=== PATIENT | female | born 1950 | race Caucasian/White ===

== ENCOUNTER 2019-01-19 16:16 | Emergency (ER) | payer MEDICARE ==
--- NOTE | 2019-01-19 16:30 | UC ---
Respiratory Complaint HPI - HPI Summary HPI Summary: 68 y/o female presents to the urgent care accompany by daughter c/o productive cough, chest congestion, fatigue for the past 2 weeks. Pt reports PMHX of COPD , depression, and chronic back pain s/p surgeries and on pain management. Pt states she is a heavy everyday smoker. Pt states her PCP Dr Monroe changed her Clonipine for Buspirone PO in 11/23/2018. She didn't tolerated ell medication and now it was change to Mirtazapine 15mg PO on 01/17/2019. For the past 2 days she has been feeling w/ shakiness, weakness. Chest congestion is worse today and had some chills last night. Pt denies SOB, chest pain,abdominal pain, dizziness today, ZHOU, fever, abdominal pain, N/V/D. - History of Current Complaint Stated Complaint: UPPER RESPITORY,COUGH Time Seen by Provider: 01/19/19 16:24 Hx Obtained From: Patient, Family/[employer] - daughter Onset/Duration: Gradual Onset, Lasting Weeks Timing: Intermittent Episodes Severity Initially: Mild Severity Currently: Mild Pain Intensity: 0 Pain Scale Used: 0-10 Numeric Character: Cough: Productive, Sputum Description: - yellowish Aggravating Factors: Recumbent Position Alleviating Factors: OTC Meds Associated Signs And Symptoms: Positive: Chills, Wheezing - mild, URI, Nasal Congestion, Sinus Discomfort. Negative: Fever, Dizziness - Risk Factors Pulmonary Embolism Risk Factors: Negative Cardiac Risk Factors: Negative Pseudomonas Risk Factors: Negative Tuberculosis Risk Factors: Negative - Allergies/Home Medications Allergies/Adverse Reactions: Allergies Allergy/AdvReac Type Severity Reaction Status Date / Time cefprozil [From Cefzil] Allergy Airway Verified 01/19/19 16:44 Obstruction MS Cefprozil [From Cefzil] Allergy Anaphylatic Verified 11/04/14 13:19 Shock Home Medications: Home Medications Mirtazapine TAB* [Remeron TAB*] 15 mg PO BEDTIME 01/19/19 [History Confirmed ] PMH/Surg Hx/FS Hx/Imm Hx Previously Healthy: Yes Respiratory History: COPD Psychological History: Anxiety, Depression - Surgical History Surgical History: Yes Surgery Procedure, Year, and Place: 3 Back Surgeries. Cholecystectomy. Tubal Ligation - Family History Known Family History: Positive: Cardiac Disease, Hypertension Family History: bladder cancer - Social History Occupation: Retired Lives: With Family Alcohol Use: Rare Substance Use Type: None Smoking Status (MU): Heavy Every Day Tobacco Smoker Type: Cigarettes Amount Used/How Often: 1 PPD Have You Smoked in the Last Year: Yes Household Exposure Type: Cigarettes Review of Systems All Other Systems Reviewed And Are Negative: Yes Constitutional: Positive: Chills, Other - fatigue Skin: Positive: Negative Eyes: Positive: Negative ENT: Positive: Nasal Discharge - yellowish, Sinus Congestion, Sinus Pain/ Tenderness, Other - yellowish PND Respiratory: Positive: Cough - productive cough q/ yellowish phlegm, Other - mild wheezing Cardiovascular: Positive: Negative Gastrointestinal: Positive: Negative Genitourinary: Positive: Negative Motor: Positive: Negative Neurovascular: Positive: Negative Musculoskeletal: Positive: Negative Neurological: Positive: Weakness Psychological: Positive: Negative Is Patient Immunocompromised?: No Physical Exam - Summary Physical Exam Summary: Vital Signs Reviewed: Yes General: well developed, well nourished thin female sitting in the examining table w/o any apparent distress Eyes: Positive: Conjunctiva Clear - PERRLA, EOMI, fundi grossly normal ENT: Positive: Normal ENT inspection, Hearing grossly normal, Pharynx normal, Nasal congestion - edematous and erythematous nasal mucosa, Nasal drainage - yellowish drainage, TMs normal. Negative: Tonsillar swelling, Tonsillar exudate Neck: Positive: Supple, Nontender, No Lymphadenopathy Respiratory: no orthopnea or dyspnea. Able to speak in full sentences, no retractions or accessory muscle use, no tripod position, stridor, or head bobbing. Positive breath sounds bilaterally. diffuse scattered wheezing and rhonchi on b/L lungs, no crackles or rales. Cardiovascular: Positive: RRR, No Murmur, Pulses Normal, Brisk Capillary Refill Abdomen Description: Positive: Nontender, No Organomegaly, Soft. Negative: CVA Tenderness (R), CVA Tenderness (L) Bowel Sounds: Positive: Present Musculoskeletal Exam: Normal Musculoskeletal: Positive: Strength Intact, ROM Intact, No Edema Neurological Exam: Normal Psychological Exam: Normal Skin Exam: Normal Triage Information Reviewed: Yes Respiratory Course/Dx - Course Course Of Treatment: 68 y/o female presents to the urgent care accompany by daughter c/o productive cough, chest congestion, fatigue for the past 2 weeks. Pt reports PMHX of COPD , depression, and chronic back pain s/p surgeries and on pain management. Pt states she is a heavy everyday smoker. Pt states her PCP Dr Monroe changed her Clonipine for Buspirone PO in 11/23/2018. She didn't tolerated ell medication and now it was change to Mirtazapine 15mg PO on 01/17/2019. For the past 2 days she has been feeling w/ shakiness, weakness. Chest congestion is worse today and had some chills last night. Pt denies SOB, chest pain,abdominal pain, dizziness today, ZHOU, fever, abdominal pain, N/V/D. Hx obtained. Pt is hemodynamically stable, A&OX3, O2SAt:98%Pt w/ B/L lungs scattered wheezing and rhonchi on examination. Pt w/ PMHX of COPD and heavy smoker in the past. Pt probably w/ a COPD exacerbation. Chest X-ray ordered: IMPRESSION: Stigmata of obstructive lung disease. No acute pulmonary or cardiac process evident as per radiologist. Pt w/ COPD exacerbation clinically. Pt given a Duoneb treatment. Pt tolerated well medications and her lungs improved. Pt states feeling better, breathing better. Pt will be tx w/ Rx Doxycycline PO , advised to use the neb Tx at home and inhalers. Strongly advised to f/u with her PCP this coming Monday for further management in her COPD adn her Depression since Mirtazarpine is given her side effect of shakiness and fatigue. Also explained if symptoms worsen to go immediately to the ER for further management. Daughter and Pt understood and agreed with D/C w/ plan of care. Pt left clinic hemodynamically, stable A&OX3. - Differential Dx/Diagnosis Differential Diagnosis/HQI/PQRI: Bronchitis, Exacerbation Of COPD, Influenza, Lower Resp Infection, Sinusitis, Tuberculosis, Other Provider Diagnosis: COPD with acute exacerbation, Wheezing Discharge - Sign-Out/Discharge Documenting (check all that apply): Patient Departure - D/C home All imaging exams completed and their final reports reviewed: Yes - Discharge Plan Condition: Stable Disposition: HOME Prescriptions: DOXYcycline CAP(*) [DOXYcycline 100MG CAP(*)] 100 mg PO BID #20 cap Patient Education Materials: COPD (Chronic Obstructive Pulmonary Disease) (ED) Referrals: Niya Monroe MD [Primary Care Provider] - 2 Days Additional Instructions: 1-Please take full course of antibiotic to avoid resistance. Take yogurt w/ probiotics or Cuturelle to protect your GI system 2-Do the Albuterol Neb Tx at home to alleviate cough and wheezing. Increase fluid intake, rest and eat well. 3- If symptoms do not improve or worsen or your develop SOB with fever and severe wheezing, dizziness, chest pain please go immediately to the ER further evaluation and treatment. 4- Please f/u w/ your PCP this coming Monday for further management on your COPD adn your Depression. Mirtazarpine may be causing some side effecte of shakiness and fatigue - Billing Disposition and Condition Condition: STABLE Disposition: Home
--- OUTSIDE RECORDS SUMMARY | 2019-01-19 16:31 | XMS REPORT | Continuity of Care Document ---
:1950 External Reference #:[id number] Author Name Niya Monroe MD Address [address] [place] [address] Care Team Providers Name Role Phone Niya Monroe MD Care Team Information Cytotechnologist/Histotechnologist Unavailable Niya Monroe MD Primary Care Physician Unavailable Payers Date Identification Numbers Payment Provider Subscriber Policy Number: [id number] [facility] Medicare [employer] Number: [id number] [address] [address] PayID: [id number] [place] [address] Problems Active Problems Provider Date Chronic obstructive lung disease Puja Noe M.D. Onset: 03/04/2015 Degenerative joint disease involving Ariana Wells [facility] Onset: 2012 multiple joints Low back pain Puja Noe M.D. Onset: 10/16/2012 Neoplasm of uncertain behavior of ovary Niya Monroe MD Onset: 08/24/2017 Substance abuse counseling Niya Monroe MD Onset: 08/24/2017 Thoracic and lumbosacral neuritis Niya Monroe MD Onset: 12/15/2016 Intra-abdominal and pelvic swelling, mass Niya Monroe MD Onset: 2015 and lump Tobacco user Niya Monroe MD Onset: 02/29/2016 Posttraumatic stress disorder Niya Monreo MD Onset: 02/29/2016 Generalized anxiety disorder Niya Monroe MD Onset: 02/29/2016 Moderate recurrent major depression Niya Monroe MD Onset: 02/29/2016 Resolved Problems Weight decreased Puja Noe M.D. Onset: 10/16/2012 Resolved: 03/04/2015 Family History Date Family Member(s) Observation Comments Father due to Bladder Cancer () Onset: (age 61 Years) Father Cancer Father due to Throat Cancer () Mother due to Uterine Cancer () Onset: (age 42 Years) Mother Cancer Mother due to Breast Cancer () First Sister neck surgery Social History Type Date Description Comments Sex Unknown Marital Status Lives With Alone 2 DOGS AND 4 CATS Pets 3 cats Occupation Disabled FROM BACK ADL's/IADL's Independent with all ADL's ADL's/IADL's Independent with all IADL's Hobbies Reading Hobbies [employer] Tobacco Use Start: Unknown current cigarette 2 PPD X 10 YRS 1 smoker PPD X 40 YRS ETOH Use Denies alcohol use Recreational Drug Use Never Used Drugs Tobacco Use Start: Unknown Heavy tobacco smoker (more than 10 cigarettes/day) Smoking Status Reviewed: 12/26/18 Heavy tobacco smoker (more than 10 cigarettes/day) Exercise Type/Frequency Exercises rarely Allergies, Adverse Reactions, Alerts Active Allergies Reaction Severity Comments Date Cefzil 03/04/2015 Medications Active Medications SIG Qnty Indications Ordering Date Provider Buspirone HCL take 1 tablet by 120tabs F41.1 Niya Monroe, 11/23/2018 5mg mouth 4 times a MD Tablets day according to schedule outlined in office Fluoxetine HCL 1 by mouth every 90tabs Niya Monroe, 09/19/2018 60mg day MD Tablets Advair Diskus 1 inhalation 60units J44.9 Niya Monroe, 05/16/2017 1X/Day MD 250-50mcg/Dose Aerosol Albuterol Sulfate 1 vial in 75ml J44.9 Niya Monroe, 05/16/2017 nebulizer every 4 MD (2.5mg/3ML) 0.083% hours as needed Nebulizer Oxycodone/Acetaminop 1-2 q bid prn pain Unknown hen 5-325mg Tablets Clonazepam 1 tab by mouth as 36tabs Niya Monroe, 0.5mg planned for MD Tablets weaning. Reference #: [id number] Morphine Sulfate ER Take One Capsule Unknown By Mouth Every 12 50mg Caps ER 24HR Hours History Medications Chantix Starting use as directed on 53tabs Niya Monroe, 09/26/2018 - Month Sherman package 11/23/2018 0.5mg X 11 & 1 mg X 42 Tablets Prednisone 2 tab by mouth 10tabs J44.1 Oscar Jones MD 06/26/2018 - 20mg every day as 11/23/2018 Tablets directed Azithromycin 2 tabs (500mg) on 6tabs J44.1 Oscar Jones MD 06/26/2018 - 250mg first day, then 1 11/23/2018 Tablets tab by mouth (250mg) for next 4 days Fluoxetine HCL 1 cap 1x/day along 90tabs Niya Monroe, 01/24/2018 - (PMDD) with 40 mg dose 09/19/2018 20mg Tablets Chantix Starting use as directed on 53tabs Niya Monroe, 01/24/2018 - Month [place] package 06/26/2018 0.5mg X 11 & 1 mg X 42 Tablets Chantix 1 by mouth twice a 180tabs Niya Monroe, 01/24/2018 - 1mg Tablets day with meal 06/26/2018 Ventolin HFA take 2 puffs every 8gm Niya Monroe, 01/24/2018 - 4 hours as needed 11/23/2018 108(90Base) mcg/Act for Aerosol wheezing,shortness of breath or persistent cough. Chantix 1 tab by mouth 60tabs F17.210 Martha Barrera, 05/16/2017 - 1mg Tablets twice a day PNP-CLEO RUSSO, 05/16/2017 Ibclc Perforomist take 1 vial twice 240ml J44.9 Asad Conley, 03/30/2016 - daily. 12/15/2016 20mcg/2ML Nebulizer Pulmicort 1 vial in neb. 60ml J44.9 Oscar Jones MD 03/24/2016 - 2x/day 11/23/2018 0.25mg/2ML Suspension Proair HFA 1-2 inhalations 8.500gm J44.9 Niya Monroe, 03/24/2016 - every 4 hours as Unknown 108(90Base) mcg/Act needed for sob, Aerosol wheezing or persistent cough Advair Diskus use 1 breath twice 3units 496 Barbara, 03/04/2015 - a day Nikki Luo 02/29/2016 250-50mcg/Dose Aerosol Oxybutynin Chloride 1 by mouth every 90tabs 788.31 Barbara, 03/04/2015 - ER day Nikki Luo 03/24/2016 10mg Tablets ER 24HR Vesicare 1 po qd prn Barbara, 09/18/2013 - 5mg MD Puja 03/04/2015 Tablets Meloxicam 1 po qd with food 30tabs Barbara, 04/09/2013 - 15mg for back pain MD Puja 03/04/2015 Tablets Lola 1 PO bid Unknown - 50mg Caps ER 08/24/2017 24HR Fluoxetine HCL 1 by mouth once a 90caps Niya Monroe, - 40mg day along with 20 09/19/2018 Capsules mg dose Pristiq 1 po qd, pain Dr 90tabs Unknown - 50mg is tapering 03/04/2015 Tablets ER 24HR 06/17/13 Flovent HFA 1 puffs twice a Unknown - day as needed Unknown 110mcg/Act Aerosol Albuterol Sulfate nebulized every 6 Unknown - hours as needed 05/16/2017 (2.5mg/3ML) 0.083% Nebulizer Gabapentin Take One Capsule Unknown - 300mg By Mouth Three 11/23/2018 Capsules Times A Day Bupropian HCL SR 1 PO qd For Unknown - Smoking Cessation 01/24/2018 100mg Immunizations CPT Code Status Date Vaccine Lot # [id number] Given 08/24/2017 Tdap injection [id number] 39814 Given 05/16/2017 Pneumovax Injection [id number] 93550 Given 03/04/2015 Pneumococcal Conjugate Vaccine 13 Valent For [id number] Intramuscular Use 72805 Given 06/17/2013 flu vaccination [id number] Refused 05/16/2017 Influenza Vaccine, Inactivated, Subunit, Adjuvanted , For Intrmusc Vital Signs Date Vital Result Comment 12/26/2018 6:25pm BP Systolic Sitting Left Arm 108 mmHg BP Diastolic Sitting Left Arm 66 mmHg Heart Rate 86 /min Respiratory Rate 18 /min Height 63 inches 5'3" Weight 101.00 lb BMI (Body Mass Index) 17.9 kg/m2 BSA (Body Surface Area) 1.45 m2 [place] body weight in kilograms 52 kg 11/23/2018 4:03pm BP Systolic 124 mmHg BP Diastolic 74 mmHg Heart Rate 88 /min Respiratory Rate 18 /min Weight 100.00 lb O2 % BldC Oximetry 93 % Ra 06/26/2018 10:58am BP Systolic 116 mmHg BP Diastolic 76 mmHg Body Temperature 98.3 F Heart Rate 95 /min Respiratory Rate 20 /min Weight 98.00 lb O2 % BldC Oximetry 96 % 01/24/2018 2:49pm BP Systolic 138 mmHg BP Diastolic 86 mmHg BP Systolic Sitting Left Arm 138 mmHg BP Diastolic Sitting Left Arm 87 mmHg Body Temperature 98.4 F Heart Rate 107 /min Respiratory Rate 20 /min Weight 102.00 lb O2 % BldC Oximetry 96 % O2 Saturation Level with Exercise 92 % 08/24/2017 1:41pm BP Systolic Sitting Left Arm 142 mmHg BP Diastolic Sitting Left Arm 72 mmHg Body Temperature 98.5 F Heart Rate 102 /min Height 63 inches 5'3" Weight 112.00 lb BMI (Body Mass Index) 19.8 kg/m2 BSA (Body Surface Area) 1.51 m2 [place] body weight in kilograms 52 kg O2 % BldC Oximetry 92 % 05/16/2017 2:34pm BP Systolic Sitting Left Arm 122 mmHg BP Diastolic Sitting Left Arm 70 mmHg Body Temperature 96.8 F Heart Rate 60 /min Respiratory Rate 30 /min Height 64 inches 5'4" Weight 104.00 lb BMI (Body Mass Index) 17.8 kg/m2 BSA (Body Surface Area) 1.48 m2 [place] body weight in kilograms 54 kg O2 % BldC Oximetry 98 % 12/15/2016 3:55pm BP Systolic Sitting Right Arm 126 mmHg BP Diastolic Sitting Right Arm 64 mmHg Height 64 inches 5'4" Weight 103.00 lb BMI (Body Mass Index) 17.7 kg/m2 BSA (Body Surface Area) 1.48 m2 [place] body weight in kilograms 54 kg 03/30/2016 3:03pm BP Systolic Sitting Right Arm 130 mmHg BP Diastolic Sitting Right Arm 79 mmHg Heart Rate 63 /min Height 63 inches 5'3" Weight 112.00 lb BMI (Body Mass Index) 19.8 kg/m2 BSA (Body Surface Area) 1.51 m2 O2 % BldC Oximetry 95 % 03/24/2016 2:40pm BP Systolic Sitting Left Arm 113 mmHg BP Diastolic Sitting Left Arm 63 mmHg Body Temperature 97.8 F Heart Rate 66 /min Respiratory Rate 22 /min Height 63 inches 5'3" Weight 112.12 lb BMI (Body Mass Index) 19.9 kg/m2 BSA (Body Surface Area) 1.51 m2 02/29/2016 5:12pm BP Systolic Sitting Left Arm 114 mmHg BP Diastolic Sitting Left Arm 68 mmHg Height 63 inches 5'3" Weight 113.00 lb BMI (Body Mass Index) 20.0 kg/m2 BSA (Body Surface Area) 1.52 m2 [place] body weight in kilograms 52 kg 03/04/2015 3:01pm BP Systolic Sitting Left Arm 104 mmHg BP Diastolic Sitting Left Arm 60 mmHg Heart Rate 90 /min Respiratory Rate 22 /min Height 63 inches 5'3" Weight 109.00 lb BMI (Body Mass Index) 19.3 kg/m2 BSA (Body Surface Area) 1.49 m2 O2 % BldC Oximetry 93 % 09/18/2013 2:20pm BP Systolic 104 mmHg BP Diastolic 62 mmHg Height 63 inches 5'3" Weight 112.00 lb 06/17/2013 1:01pm BP Systolic 118 mmHg BP Diastolic 62 mmHg Height 63 inches 5'3" Weight 105.00 lb 06/17/2013 1:08pm O2 % BldC Oximetry 94 % 04/09/2013 2:50pm BP Systolic 122 mmHg BP Diastolic 72 mmHg Weight 109.00 lb 01/16/2013 10:04am Height 63 inches 5'3" Weight 112.00 lb 01/16/2013 10:06am BP Systolic 110 mmHg BP Diastolic 64 mmHg Heart Rate 82 /min 10/16/2012 3:47pm BP Systolic 102 mmHg BP Diastolic 54 mmHg 10/16/2012 3:47pm BP Systolic 102 mmHg BP Diastolic 54 mmHg Heart Rate 84 /min Respiratory Rate 19 /min Height 63 inches 5'3" Weight 114.00 lb Results Test Date Facility Test Result H/L Range Note CBS 01/24/2018 [facility] White Blood 13.5 K/uL High 3.1-10.7 1 W/Automated [address] Count Diff [place], [place] [id number] [phone] Red Blood Count 4.50 M/uL N 3.90-5.40 Hemoglobin 14.0 gm/dL N 11.6-15.8 Hematocrit 42.8 % N 36.0-46.1 Mean Cell Volume 95.1 fl N 80.9-99.0 Mean Corpuscular HGB 31.1 pg N 25.9-32.7 Mean Corpuscular HGB Conc 32.7 g/dL N 30.8-34.3 Platelet Count 409 K/uL High 155-360 Red Cell Distri Width SD 47.2 fl High 3-47 Red Cell Distri Width %CV 13.9 % N 11.7-14.4 Mean Platelet Volume 10.5 fL N 8.9-12.4 Neut% 68.1 % N 40.4-72.8 Lymph % 24.0 % N 20.0-42.0 [place] % 7.2 % N 4.3-13.2 Eo% 0.5 % N 0.0-6.6 Bas% 0.2 % N 0.0-1.1 Neut# 9.16 K/uL High 1.8-7.0 Lymph # 3.23 K/uL N 1.0-4.0 [place] # 0.97 K/uL High 0.3-0.9 Eos # 0.07 K/uL N 0.0-0.5 Baso # 0.03 K/uL N 0.0-0.1 LDL Cholesterol 01/24/2018 [facility] Cholesterol 207 mg/dL High <200 2 Profile [address] [place], [place] [id number] [phone] Triglycerides 168 mg/dL High <150 3 HDL Cholesterol 70 mg/dL >40 4 LDL-Cholesterol 103 mg/dL < 100 5 Comprehensive Metabolic 01/24/2018 [facility] Glucose 83 mg/dL N 74-106 Panel [address] [place] [address] [phone] BUN 15 mg/dL N 7-18 Creatinine 0.6 mg/dL N 0.6-1.3 Glom Filtration Rate, Estimate >60 mL/min >60 If >60 mL/min >60 6 BUN/Creat 25.0 ratio Sodium 135 mmol/L Low 136-145 Potassium 4.0 mmol/L N 3.5-5.1 Chloride 97 mmol/L Low 98-107 Carbon Dioxide 26 mmol/L N 21-32 Anion Gap 12 mEq/L N 8-16 Calcium 9.0 mg/dL N 8.5-10.1 Total Protein 7.5 g/dL N 6.4-8.2 Albumin 3.9 g/dL N 3.4-5.0 Globulin 3.6 g/dL N 1.9-4.3 Alb/Glob 1.1 ratio Bilirubin,Total 0.3 mg/dL N 0.2-1.0 Sgot/Ast 13 U/L Low 15-37 7 SGPT/Alt 20 U/L N 12-78 Alkaline Phosphatase 93 U/L N 45-117 HCV Jeanette Qual 01/24/2018 [facility] HCV Rna Jeanette QL Negative Negative 8 Reflex Gloria [address] [place] [address] [phone] Slide Review 01/24/2018 [facility] Slide Review DIFF ORDERED [address] [place] [address] [phone] Differential-W 01/24/2018 [facility] Total Cells 100 #CELLS BC Confirm [address] [place] [place] [address] [phone] Band% 2 % N 0-8 Neutrophils% 74 % High 33-73 Lymph% 18 % Low 20-42 Atypical Lymph% 1 % N 0-7 Monocyte% 5 % N 0-10 Platelet Estimate SLIGHT INCREASE Anisocytosis 0-1+ Laboratory test finding 04/12/2016 N2N/CCD Import Anion Gap 4 Low 8-16 BUN/Creatinine Ratio 20.0 Blood Urea Nitrogen 8 7-18 Calcium Level 8.3 Low 8.5-10.1 Carbon Dioxide Level 29 21-32 Chloride Level 103 98-107 Creatinine 0.4 Low 0.6-1.3 Glucose Screen 121 High 74-106 Hematocrit 37.3 36.0-46.1 Hemoglobin 12.2 11.6-15.8 Mean Corpuscular Hemoglobin 30.7 25.9-32.7 Mean Corpuscular Hemoglobin Concent 32.7 30.8-34.3 Mean Corpuscular Volume 94.0 80.9-99.0 Mean Platelet Volume 10.4 8.9-12.4 Platelet Count 303 155-360 Potassium Level 3.6 3.5-5.1 RDW Coefficient of Variation 13.0 11.7-14.4 Red Blood Count 3.97 3.90-5.40 Sodium Level 136 136-145 White Blood Count 10.9 High 3.1-10.7 Laboratory test finding 04/11/2016 [facility] Cea 3.4 ng/mL N 9, 10 [address] [place] [address] [phone] Cancer Antigen (CA) 125 17.1 U/mL N 0.0-38.1 11 Carbohydrate Antigen 19-9 64.0 U/mL High 0-35 12 Laboratory test 04/11/2016 N2N/CCD Import Alanine Aminotransferase 24 12 -78 finding (Alt/SGPT) Albumin 3.5 3.4-5.0 Albumin/Globulin Ratio 0.9 Alkaline Phosphatase 117 45-117 Aspartate Amino Transf (Ast/Sgot) 17 15-37 Basophils # (Auto) 0.04 0.0-0.1 Basophils (%) (Auto) 0.3 0.0-1.1 Eosinophils # (Auto) 0.11 0.0-0.5 Eosinophils (%) (Auto) 0.8 0.0-6.6 Globulin 3.7 1.9-4.3 Lipase 70 Low 73-393 Lymphocytes # (Auto) 1.23 Low 1.8-7.0 Lymphocytes (%) (Auto) 8.8 Low 17.0-46.1 Manual Slide Review (Hematology) . Monocytes # (Auto) 0.69 0.3-0.9 Monocytes (%) (Auto) 4.9 4.3-13.2 Neutrophils # (Auto) 11.93 High 1.8-7.0 Neutrophils (%) (Auto) 85.2 High 40.4-72.8 Red Cell Distribution Width 43.4 3-47 Total Bilirubin 0.3 0.2-1.0 Total Protein 7.2 6.4-8.2 Laboratory test 04/11/2016 N2N/CCD Import Urine Bacteria Very Few None Seen finding Urine Bilirubin Negative Negative Urine Blood Small High Negative Urine Clarity Clear Clear Urine Color Yellow Yellow Urine Epithelial Cells Moderate None Seen Urine Glucose (Ua) Negative Negative Urine Ketones Trace High Negative Urine Leukocyte Esterase Negative Negative Urine Nitrite Negative Negative Urine Protein Negative Negative Urine Specific [place] 1.020 1.010-1.030 Urine Urobilinogen 0.2 0.2-1.0 Urine WBC None Seen 0-7 Urine pH 6.0 Low 6.5-7.5 CBC/Manual 03/04/2015 [facility] White Blood 9.6 K/uL 3.1-10.[address] [place] [address] [phone] Red Blood Count 4.33 M/uL 3.90-5.40 Hemoglobin 14.0 gm/dL 11.6-15.8 Hematocrit 41.4 % 36.0-46.1 Mean Cell Volume 95.6 fl 80.9-99.0 Mean Corpuscular HGB 32.3 pg 25.9-32.7 Mean Corpuscular HGB Conc 33.8 g/dL 30.8-34.3 Platelet Count 300 K/uL 155-360 13 Red Cell Distri Width %CV 12.9 % 11.7-14.4 Mean Platelet Volume 10.5 fL 8.9-12.4 Total Cells Counted 100 #CELLS Neutrophils% 71 % 33-73 Lymph% 21 % 17-56 Platelet Estimate NORMAL Band% 1 % 0-8 Monocyte% 5 % 0-10 Eosinophil% 1 % 0-5 Basophil% 1 % 0-2 RBC Morphology NORMAL Basic Metabolic Panel 03/04/2015 [facility] Glucose 88 mg/dL 74-106 [address] [place], [place] [id number] [phone] BUN 10 mg/dL 7-18 Creatinine 0.7 mg/dL 0.6-1.3 Glom Filtration Rate, Estimate >60 mL/min >60 If >60 mL/min >60 14 BUN/Creat 14.2 ratio Sodium 137 mmol/L 136-145 Potassium 4.0 mmol/L 3.5-5.1 Chloride 103 mmol/L 98-107 Carbon Dioxide 28 mmol/L 21-32 Anion Gap 6 mEq/L Low 8-16 Calcium 9.1 mg/dL 8.5-10.1 Comp Metabolic Panel 06/17/2013 N2N/CCD Import Albumin 4.2 g/dL 3.2-5.2 Albumin/Globulin Ratio 2.1 1-3 Alkaline Phosphatase 61 U/L 30-110 Alt 16 U/L 14-54 Anion Gap 6.0 mmol/L 2-11 Ast 18 U/L 12-42 BUN/Creatinine Ratio 16.7 8-20 Blood Urea Nitrogen 10 mg/dL 6-24 Calcium 9.6 mg/dL 8.1-9.9 Chloride 95 mmol/L Low 101-111 Co2 Carbon Dioxide 28.0 mmol/L 22-32 Creatinine 0.60 mg/dL 0.50-1.40 Egfr 129.9 >60 15 Egfr Non- 101.0 >60 Globulin 2.0 g/dL 2-4 Glucose 168 mg/dL High 70-100 Potassium 4.3 mmol/L 3.5-5.0 Sodium 129 mmol/L Low 133-145 Total Bilirubin 0.5 mg/dL 0.4-1.5 Total Protein 6.2 g/dL 6.2-8.1 CBC Auto Diff 06/17/2013 N2N/CCD Import Abs Basophils 0.1 10^3/uL 0-0.2 Abs Eosinophils 0.1 10^3/uL 0-0.6 Abs Lymphocytes 3.0 10^3/uL 1.0-4.8 Abs Monocytes 0.3 10^3/uL 0-0.8 Abs Neutrophils 5.7 10^3/uL 1.5-7.7 Abs Nucleated RBC 0 10^3/uL Basophil % 0.6 % 0-2 Eosinophil % 1.3 % 0-6 Granulocyte % 62.7 % 38-83 Hematocrit 36 % 35-47 Hemoglobin 11.5 g/dL Low 12.0-16.0 Lymphocyte % 32.4 % 25-47 Mean Corpuscular HGB Conc 32 g/dL 31-36 Mean Corpuscular Hemoglobin 29 pg 27-31 Mean Corpuscular Volume 93 fL 80-97 Mean Platelet Volume 9 um3 7.4-10.4 Monocyte % 3.0 % 1-9 Nucleated Red Blood Cells % 0 Platelet Count 298 10^3/uL 150-450 Red Blood Count 3.91 10^6/uL Low 4.0-5.4 Red Cell Distribution Width 14 % 10.5-15 White Blood Count 9.1 10^3/uL 4.8-10.8 Laboratory test 06/17/2013 N2N/CCD Import TSH (Thyroid 0.69 miu/mL 0.34- 5.60 finding Stimulating Horm) CBC Auto Diff 04/09/2013 N2N/CCD Import Abs Basophils 0.1 10^3/uL 0-0.2 Abs Eosinophils 0.2 10^3/uL 0-0.6 Abs Lymphocytes 3.4 10^3/uL 1.0-4.8 Abs Monocytes 0.5 10^3/uL 0-0.8 Abs Neutrophils 3.7 10^3/uL 1.5-7.7 Abs Nucleated RBC 0 10^3/uL Basophil % 0.8 % 0-2 Eosinophil % 2.0 % 0-6 Granulocyte % 47.4 % 38-83 Hematocrit 36 % 35-47 Hemoglobin 12.1 g/dL 12.0-16.0 Lymphocyte % 43.2 % 25-47 Mean Corpuscular HGB Conc 34 g/dL 31-36 Mean Corpuscular Hemoglobin 32 pg High 27-31 Mean Corpuscular Volume 95 fL 80-97 Mean Platelet Volume 9 um3 7.4-10.4 Monocyte % 6.6 % 1-9 Nucleated Red Blood Cells % 0 Platelet Count 276 10^3/uL 150-450 Red Blood Count 3.77 10^6/uL Low 4.0-5.4 Red Cell Distribution Width 13 % 10.5-15 White Blood Count 7.9 10^3/uL 4.8-10.8 Laboratory test 04/09/2013 N2N/LUMO [employer] Import Vitamin D 34 pg/mL 18-78 16 finding 1,25-Dihydroxy Stool Occult Blood 10/30/2012 N2N/CCD Import Occult Blood #1 Stool Negative 3 Spec MCR Occult Blood #2 Stool Negative Occult Blood #3 Stool Negative Laboratory test 10/16/2012 N2N/CCD Import TSH (Thyroid 0.58 miu/mL 0.34- 5.60 finding Stimulating Horm) Basic Metabolic 10/16/2012 N2N/CCD Import Anion Gap 7.0 mmol/L 2-11 Panel BUN/Creatinine Ratio 10.0 8-20 Blood Urea Nitrogen 6 mg/dL 6-24 Calcium 9.6 mg/dL 8.1-9.9 Chloride 103 mmol/L 101-111 Co2 Carbon Dioxide 30.0 mmol/L 22-32 Creatinine 0.60 mg/dL 0.50-1.40 Egfr 130.3 >60 17 Egfr Non- 101.3 >60 Glucose 106 mg/dL High 70-100 Potassium 4.4 mmol/L 3.5-5.0 Sodium 140 mmol/L 133-145 CBC With Manual Diff 10/16/2012 N2N/CCD Import Abs Basophils 0.1 10^3/uL 0-0.2 Abs Eosinophils 0.2 10^3/uL 0-0.6 Abs Lymphocytes 2.6 10^3/uL 1.0-4.8 Abs Monocytes 0.5 10^3/uL 0-0.8 Abs Neutrophils 4.4 10^3/uL 1.5-7.7 Abs Nucleated RBC 0 10^3/uL Basophil % 1 % 0-2 Eosinophils % 2 % 0-6 Hematocrit 38 % 35-47 Hemoglobin 12.9 g/dL 12.0-16.0 Lymphocytes % 33 % 25-47 Mean Corpuscular HGB Conc 34 g/dL 31-36 Mean Corpuscular Hemoglobin 32 pg High 27-31 Mean Corpuscular Volume 94 fL 80-97 Mean Platelet Volume 9 um3 7.4-10.4 Monocytes % 7 % 0-13 Neutrophil % 56 % 38-83 Platelet Count 247 10^3/uL 150-450 RBC Morphology Normal Normal Reactive Lymph % 1 % 0-6 Red Blood Count 4.02 10^6/uL 4.0-5.4 Red Cell Distribution Width 13 % 10.5-15 White Blood Count 7.7 10^3/uL 4.8-10.8 Liver Function Panel 10/16/2012 N2N/CCD Import Albumin 3.9 g/dL 3.2-5.2 Albumin/Globulin Ratio 1.5 1-3 Alkaline Phosphatase 83 U/L 30-110 Alt 16 U/L 14-54 Ast 17 U/L 12-42 Direct Bilirubin < 0.1 mg/dL Low 0.1-0.5 Globulin 2.6 g/dL 2-4 Indirect Bilirubin (See Note) mg/dL 0.3-1.0 18 Total Bilirubin 0.4 mg/dL 0.4-1.5 Total Protein 6.5 g/dL 6.2-8.1 Laboratory test finding 10/16/2012 N2N/CCD Import Cytology Pap See Note 19 1 Z13.0,Z13.1,Z11.59,Z13.220 2 Reference Guidelines*: Desirable: ........... < 200 mg/dL Borderline High: ..... 200-239 mg/dL High: ................ >=240 mg/dL * The National Cholesterol Education Program (NCEP) 3 Reference Guidelines*: Normal: ............. < 150 mg/dL Borderline High: .... 150-199 mg/dL High: ............... 200-499 mg/dL Very High: .......... > 500 mg/dL * Source: National Cholesterol Education Program (NCEP) 4 Reference Guidelines*: Low HDL: ..... < 40 mg/dL Normal: ..... 40-60 mg/dL Desirable: ... > 60 mg/dL *The National Cholesterol Education Program(NCEP) 5 Reference Guidelines*: Optimal:........... <100 mg/dL Near Optimal....... 100-129 mg/dL Borderline High.... 130-159 mg/dL High............... 160-189 mg/dL Very High.......... >=190 mg/dL * Source: National Cholesterol Education Program (NCEP) 6 Note: Persistent reduction for 3 months or more in an eGFR <60 mL/min/1.73 m2 defines CKD. Patients with eGFR values >/=60 mL/min/1.73 m2 may also have CKD if evidence of persistent proteinuria is present. The original MDRD equation for estimated GFR is not valid for patients less than 18 years of age. Additional information may be found at www.kdoqi.org. 7 Values below the stated reference ranges of AST and ALT can be seen in normal populations. Clinical correlation is suggested. 8 Negative: HCV RNA Not Detected Performed at: [address] [id number] Wood Scaler: Jose G López MD, Phone: [phone] LOWER ABD PAIN 10 Non-smokers ..... 0.0-3.0 ng/mL Smokers ......... 0.0-5.0 ng/mL THIS ASSAY IS NOT INTENDED A CANCER SCREENING TEST The concentration of CEA in a given specimen, determined with assays from different manufacturers, can vary due to differences in assay methods and reagent specificity. Values obtained from different assay methods cannot be used interchangeably. Method: Siemens ScoreStreak [place] Chemiluminescent Immunoassay 11 [employer] ECLIA methodology Values obtained with different assay methods or kits cannot be used interchangeably. Results cannot be interpreted as absolute evidence of the presence or absence of malignant disease. 12 [employer] ECLIA methodology Values obtained with different assay methods or kits cannot be used interchangeably. Results cannot be interpreted as absolute evidence of the presence or absence of malignant disease. Performed at: RN - [facility] [address] [id number] Wood Scaler: Do Kirk MD, Phone: [phone] FEW LARGE PLATELETS SEEN ON SMEAR 14 Note: Persistent reduction for 3 months or more in an eGFR <60 mL/min/1.73 m2 defines CKD. Patients with eGFR values >/=60 mL/min/1.73 m2 may also have CKD if evidence of persistent proteinuria is present. The original MDRD equation for estimated GFR is not valid for patients less than 18 years of age. Additional information may be found at www.kdoqi.org. 15 Because ethnic data is not always readily available, this report includes an eGFR for both -Americans and non- Americans. The National Kidney Disease Education Program (NKDEP) does not endorse the use of the MDRD equation for patients that are not between the ages of 18 and 70, are , have extremes of body size, muscle mass, or nutritional status, or are non- or non-. According to the National Kidney Foundation, irrespective of diagnosis, the stage of the disease is based on the level of kidney function: Stage Description GFR(mL/min/1.73 m(2)) 1 Kidney damage with normal or decreased GFR 90 2 Kidney damage with mild decrease in GFR 60- 89 3 Moderate decrease in GFR 30-59 4 Severe decrease in GFR 15-29 5 Kidney failure <15 (or dialysis) 16 Test Performed by: [place] [address] Vault Maker: Marty Duran III, M.D. 17 Because ethnic data is not always readily available, this report includes an eGFR for both -Americans and non- Americans. The National Kidney Disease Education Program (NKDEP) does not endorse the use of the MDRD equation for patients that are not between the ages of 18 and 70, are , have extremes of body size, muscle mass, or nutritional status, or are non- or non-. According to the National Kidney Foundation, irrespective of diagnosis, the stage of the disease is based on the level of kidney function: Stage Description GFR(mL/min/1.73 m(2)) 1 Kidney damage with normal or decreased GFR 90 2 Kidney damage with mild decrease in GFR 60- 89 3 Moderate decrease in GFR 30-59 4 Severe decrease in GFR 15-29 5 Kidney failure <15 (or dialysis) 18 UNABLE TO CALCULATE IND.BILI D.BILI IS <0.1 19 Cytology Laboratory [address] [place] [address], [address] [place] [address] CYTOLOGY REPORT Name: Tip Adam I. : 1950 (Age: 62) Sex: F Location: [facility] Med. Rec. # Date Collected: 10/16/2012 Billing #: [id number] Date Received: 2012 Physician(s): PUJA NOE MD Source of Specimen: ENDOCERVICAL/ ECTOCERVICAL THIN PREP Clinical Information: Date of Last Menstrual Period: None Provided Menstrual History: Irregular Post menopausal: 07/31/1999 Specimen Adequacy: SATISFACTORY FOR EVALUATION. ADEQUATE ENDOCERVICAL/TRANSFORMATION ZONE. General Categorization: NEGATIVE FOR INTRAEPITHELIAL LESION OR MALIGNANCY. Electronic Signature Tod Abraham MD Reported: 10/19/2012 Also seen by: KEYLA Bennett (ASCP) Cytology Outreach [facility] ICD-9 Code(s) V72.31 Procedures Date Code Description Status 11/23/2018 02662 Brief Emotional/Behav Assessment W/ Scoring Doc Per Completed Standard Inst 07/31/2015 [id number] Mammogram Completed 07/31/2015 [id number] Bone Mineral Density Test Completed 03/04/2015 12419 Spirometry Completed Encounters Type Date Location Provider Dx Diagnosis Office Visit 11/23/2018 Family Medicine Niya Monroe, F41.1 Generalized anxiety 4:00p Alberto MARSHALL MD disorder M51.16 Intervertebral disc disorders w radiculopathy, lumbar region F17.210 Nicotine dependence, cigarettes, uncomplicated J44.9 Chronic obstructive pulmonary disease, unspecified Office Visit 06/26/2018 11:15a Family Medicine Oscar Jones J44.1 Chronic obstructive Alberto AMRSHALL MD pulmonary disease w (acute) exacerbation R06.02 Shortness of breath Office Visit 01/24/2018 2:45p Family Niya Wells J44.9 Chronic Alberto MARSHALL MD obstructive pulmonary disease, unspecified F41.1 Generalized anxiety disorder F33.1 Major depressive disorder, recurrent, moderate M51.16 Intervertebral disc disorders w radiculopathy, lumbar region F17.210 Nicotine dependence, cigarettes, uncomplicated Office Visit 08/24/2017 1:30p Family Niya Wells, Z00.00 Encntr for Alberto MARSHALL MD general adult medical exam w/o abnormal findings J44.9 Chronic obstructive pulmonary disease, unspecified M51.16 Intervertebral disc disorders w radiculopathy, lumbar region F41.1 Generalized anxiety disorder F33.1 Major depressive disorder, recurrent, moderate F17.210 Nicotine dependence, cigarettes, uncomplicated Z71.6 Tobacco abuse counseling 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 Z23 Encounter for immunization Office Visit 05/16/2017 3:00p Family Martha Cooper, J44.9 Chronic Alberto MARSHALL PNP-BC, [employer], obstructive Ibcl[employer] pulmonary disease, unspecified F17.210 Nicotine dependence, cigarettes, uncomplicated Z71.6 Tobacco abuse counseling Z23 Encounter for immunization Office Visit 12/15/2016 3:30p Family Monroe M51.16 Intervertebral disc Medicine Alberto Núñez MD disorders w RD radiculopathy, lumbar region F41.1 Generalized anxiety disorder F17.210 Nicotine dependence, cigarettes, uncomplicated J44.9 Chronic obstructive pulmonary disease, unspecified F43.10 Post-traumatic stress disorder, unspecified Office Visit 03/30/2016 3:00p Pulmonology Asad Conley MD J44.9 Chronic obstructive pulmonary disease, unspecified F17.210 Nicotine dependence, cigarettes, uncomplicated Z71.6 Tobacco abuse counseling Office Visit 03/24/2016 2:45p Family Niya Wells, J44.9 Chronic Alberto MARSHALL MD obstructive pulmonary disease, unspecified F33.1 Major depressive disorder, recurrent, moderate F41.1 Generalized anxiety disorder F17.210 Nicotine dependence, cigarettes, uncomplicated R19.00 Intra-abd and pelvic swelling, mass and lump, unsp site Office Visit 02/29/2016 4:30p Niya Banegas, F33.1 Major depressive Alberto MARSHALL MD disorder, recurrent, moderate F41.1 Generalized anxiety disorder F43.10 Post-traumatic stress disorder, unspecified F17.210 Nicotine dependence, cigarettes, uncomplicated J44.9 Chronic obstructive pulmonary disease, unspecified Office Visit 03/04/2015 3:40p Family Medicine Noe, [address] Nikki Luo Obstruction Chronic Not Class Elsewhere 788.31 Incontinence Urge 305.1 Tobacco Use Disorder V03.82 Streptococcus Pneumoniae Vaccination Spec Other Plan of Treatment 12/26/2018 - Niya Monroe MDF41.1 Generalized anxiety disorderComments:WE HAVE WRITTEN UP THE PLAN ON A CALENDAR FOR THE NEXT 4 WEEKS.YOU SHOULD BE TOTALLY OFF CLONAZEPAM IN 4 WEEKS, AND ON BUSPIRONE 3X/DAY, MAYBE EVEN 4Follow up:4 WEEKS
[2019-01-19 16:43] VITALS: BP 119/81
[2019-01-19] MEDS ORDERED: Albuterol/Ipratropium NEB.SOL* Albuterol 2.5 MG/Ipratropium 0.5 MG 3 ML INH ONE (17:11)
== END 2019-01-19 18:11 | disposition home or self-care (01) ==
LOC: UCCORT 16:16
DX: J44.1 Chronic obstructive pulmonary disease with (acute) exacerbation (principal); R06.2 Wheezing; F41.9 Anxiety disorder, unspecified; F32.9 Major depressive disorder, single episode, unspecified; F17.210 Nicotine dependence, cigarettes, uncomplicated
CPT/HCPCS: 71046; 99202; A9270-GY; G0463